=== PATIENT | male | born 1970 | race Hispanic/Latino ===

== ENCOUNTER 2017-07-08 18:14 | Inpatient (IN) | payer OTHER ==
--- NOTE | 2017-07-08 20:07 | Emergency Department Report ---
ED Altered Mental Status HPI - General Chief Complaint: Altered Mental Status Stated Complaint: ALTERED MENTAL STATUS Time Seen by Provider: 07/08/17 20:05 Source: EMS Mode of arrival: Stretcher Limitations: Altered Mental Status - History of Present Illness Initial Comments: According to EMS patient was doing drugs earlier today. He doesn't become altered and had a seizure. He was given 2 mg of Ativan for the seizure. Patient is postictal currently. However he is easily arousable but does not answer questions. MD Complaint: altered mental status -: Sudden Severity: moderate Consistency of Symptoms: unknown Context: drug abuse Associated Symptoms: seizure Treatments Prior to Arrival: other pre-hosp med (Ativan 2mg) - Related Data Previous Rx's Medication Instructions Recorded Last Taken Type Cephalexin [Keflex] 500 mg PO Q6HR #20 capsule 07/09/17 Unknown Rx Allergies Allergy/AdvReac Type Severity Reaction Status Date / Time No Known Allergies Allergy Verified 07/09/17 05:49 ED Review of Systems ROS: Stated complaint: ALTERED MENTAL STATUS Other details as noted in HPI Comment: Unobtainable due to pts medical conditions (Patient is postictal.) ED Past Medical Hx - Past Medical History Additional medical history: UNKNOWN - Surgical History Additional Surgical History: UNKNOWN - Social History Smoking Status: Unknown if ever smoked Substance Use Type: Methamphetamines - Medications Home Medications: Home Medications Medication Instructions Recorded Confirmed Last Taken Type Cephalexin [Keflex] 500 mg PO Q6HR #20 capsule 07/09/17 Unknown Rx ED Physical Exam - General Limitations: Altered Mental Status General appearance: other (Arousable but drowsy.) - Head Head exam: Present: atraumatic, normal inspection - Eye Eye exam: Present: PERRL - ENT ENT exam: Present: normal exam - Neck Neck exam: Present: normal inspection - Respiratory Respiratory exam: Present: normal lung sounds bilaterally. Absent: respiratory distress - Cardiovascular Cardiovascular Exam: Present: regular rate, normal rhythm, normal heart sounds - GI/Abdominal GI/Abdominal exam: Present: soft, normal bowel sounds. Absent: tenderness, guarding, rebound - Extremities Exam Extremities exam: Present: other (Right BKA.). Absent: pedal edema - Neurological Exam Neurological exam: Present: other (Drowsy but easily arousable. GCS = 10.) - Psychiatric Psychiatric exam: Present: flat affect - Skin Skin exam: Present: warm, dry, intact, normal color. Absent: rash - Level of Consciousness 1a. Level of Consciousness: not alert, arousable - LOC Questions 1b. LOC Questions: answers no questions correctly - LOC Command 1c. LOC Commands: performs no tasks correctly (Unable to perform because patient is pstictal.) ED Course Vital Signs 07/08/17 07/08/17 07/08/17 19:38 19:45 19:46 Temperature 99.0 F Pulse Rate 78 76 Respiratory 17 15 Rate Blood Pressure 160/95 143/93 160/95 Blood Pressure [Left] Blood Pressure [Right] O2 Sat by Pulse 98 97 97 Oximetry 07/08/17 07/08/17 07/08/17 20:00 20:12 20:30 Temperature Pulse Rate 79 Respiratory 17 14 Rate Blood Pressure 150/90 161/101 Blood Pressure [Left] Blood Pressure [Right] O2 Sat by Pulse 98 100 98 Oximetry 07/08/17 07/08/17 07/08/17 20:45 21:00 23:42 Temperature Pulse Rate Respiratory 18 Rate Blood Pressure 153/100 141/102 Blood Pressure 160/98 [Left] Blood Pressure [Right] O2 Sat by Pulse 97 96 100 Oximetry 07/09/17 07/09/17 07/09/17 04:34 04:40 04:45 Temperature Pulse Rate 86 Respiratory Rate Blood Pressure 156/106 156/106 147/97 Blood Pressure [Left] Blood Pressure [Right] O2 Sat by Pulse Oximetry 07/09/17 07/09/17 07/09/17 04:52 04:54 05:01 Temperature Pulse Rate Respiratory Rate Blood Pressure 145/93 131/65 Blood Pressure 147/97 [Left] Blood Pressure [Right] O2 Sat by Pulse Oximetry 07/09/17 07/09/17 07/09/17 05:14 05:15 05:30 Temperature Pulse Rate Respiratory Rate Blood Pressure 140/70 138/75 Blood Pressure 131/65 [Left] Blood Pressure [Right] O2 Sat by Pulse Oximetry 07/09/17 07/09/17 05:54 06:00 Temperature 98.1 F 98.1 F Pulse Rate 81 86 Respiratory 20 20 Rate Blood Pressure 150/88 Blood Pressure [Left] Blood Pressure 150/88 [Right] O2 Sat by Pulse 97 96 Oximetry - Reevaluation(s) Reevaluation #1: 07/08/17 22:43 I consulted the tele neurologist socially responsible investment adviser Dr Sauceda. She wants patient admitted to the hospital for observation. She does not want any seizure medication started at this time. However she said if the patient have another seizure to use Ativan to abort the seizure. This patients care was discussed with the hospitalist on-call Dr Ramirez. He will admit the patient to the hospital for further evaluation and management. 07/08/17 23:33 - Lab Data Result diagrams: 07/08/17 20:38 07/08/17 20:38 Lab Results 07/08/17 07/08/17 07/08/17 Range/Units 20:38 20:38 20:38 WBC 5.8 (4.5-11.0) K/mm3 RBC 4.52 (3.65-5.03) M/mm3 Hgb 13.2 (11.8-15.2) gm/dl Hct 40.3 (35.5-45.6) % MCV 89 (84-94) fl MCH 29 (28-32) pg MCHC 33 (32-34) % RDW 14.9 (13.2-15.2) % Plt Count 218 (140-440) K/mm3 Lymph % (Auto) 34.6 (13.4-35.0) % [place] % (Auto) 8.9 H (0.0-7.3) % Eos % (Auto) 4.5 H (0.0-4.3) % Baso % (Auto) 0.6 (0.0-1.8) % Lymph # 2.0 (1.2-5.4) K/mm3 [place] # 0.5 (0.0-0.8) K/mm3 Eos # 0.3 (0.0-0.4) K/mm3 Baso # 0.0 (0.0-0.1) K/mm3 Seg Neutrophils % 51.4 (40.0-70.0) % Seg Neutrophils # 3.0 (1.8-7.7) K/mm3 PT 12.6 (12.2-14.9) Sec. INR 0.90 (0.87-1.13) APTT 31.4 (24.2-36.6) Sec. Sodium 139 (137-145) mmol/L Potassium 4.2 (3.6-5.0) mmol/L Chloride 101.6 (98-107) mmol/L Carbon Dioxide 27 (22-30) mmol/L Anion Gap 15 mmol/L BUN 11 (9-20) mg/dL Creatinine 0.9 (0.8-1.5) mg/dL Estimated GFR > 60 ml/min BUN/Creatinine Ratio 12 % Glucose 96 (75-100) mg/dL Lactic Acid (0.7-2.0) mmol/L Calcium 8.8 (8.4-10.2) mg/dL Total Bilirubin 0.30 (0.1-1.2) mg/dL AST 15 (5-40) units/L ALT 15 (7-56) units/L Alkaline Phosphatase 107 (35-129) units/L Total Creatine Kinase (55-170) units/L Troponin T (0.00-0.029) ng/mL Total Protein 6.5 (6.3-8.2) g/dL Albumin 4.2 (3.9-5) g/dL Albumin/Globulin Ratio 1.8 % Urine Color (Yellow) Urine Turbidity (Clear) Urine pH (5.0-7.0) Ur Specific Imbler (1.003-1.030) Urine Protein (Negative) mg/dL Urine Glucose (UA) (Negative) mg/dL Urine Ketones (Negative) mg/dL Urine Blood (Negative) Urine Nitrite (Negative) Urine Bilirubin (Negative) Urine Urobilinogen (<2.0) mg/dL Ur Leukocyte Esterase (Negative) Urine WBC (Auto) (0.0-6.0) /HPF Urine RBC (Auto) (0.0-6.0) /HPF Urine Bacteria (Auto) (Negative) /HPF Urine WBC Clumps /HPF Urine Opiates Screen Urine Methadone Screen Ur Barbiturates Screen Ur Phencyclidine Scrn Ur Amphetamines Screen U Benzodiazepines Scrn Urine Cocaine Screen U Marijuana (THC) Screen Drugs of Abuse Note Plasma/Serum Alcohol (0-0.07) % 07/08/17 07/08/17 07/08/17 Range/Units 20:38 20:38 20:38 WBC (4.5-11.0) K/mm3 RBC (3.65-5.03) M/mm3 Hgb (11.8-15.2) gm/dl Hct (35.5-45.6) % MCV (84-94) fl MCH (28-32) pg MCHC (32-34) % RDW (13.2-15.2) % Plt Count (140-440) K/mm3 Lymph % (Auto) (13.4-35.0) % Stonewall % (Auto) (0.0-7.3) % Eos % (Auto) (0.0-4.3) % Baso % (Auto) (0.0-1.8) % Lymph # (1.2-5.4) K/mm3 [place]wall # (0.0-0.8) K/mm3 Eos # (0.0-0.4) K/mm3 Baso # (0.0-0.1) K/mm3 Seg Neutrophils % (40.0-70.0) % Seg Neutrophils # (1.8-7.7) K/mm3 PT (12.2-14.9) Sec. INR (0.87-1.13) APTT (24.2-36.6) Sec. Sodium (137-145) mmol/L Potassium (3.6-5.0) mmol/L Chloride (98-107) mmol/L Carbon Dioxide (22-30) mmol/L Anion Gap mmol/L BUN (9-20) mg/dL Creatinine (0.8-1.5) mg/dL Estimated GFR ml/min BUN/Creatinine Ratio % Glucose (75-100) mg/dL Lactic Acid 1.10 (0.7-2.0) mmol/L Calcium (8.4-10.2) mg/dL Total Bilirubin (0.1-1.2) mg/dL AST (5-40) units/L ALT (7-56) units/L Alkaline Phosphatase (35-129) units/L Total Creatine Kinase 381 H (55-170) units/L Troponin T < 0.010 (0.00-0.029) ng/mL Total Protein (6.3-8.2) g/dL Albumin (3.9-5) g/dL Albumin/Globulin Ratio % Urine Color (Yellow) Urine Turbidity (Clear) Urine pH (5.0-7.0) Ur Specific Imbler (1.003-1.030) Urine Protein (Negative) mg/dL Urine Glucose (UA) (Negative) mg/dL Urine Ketones (Negative) mg/dL Urine Blood (Negative) Urine Nitrite (Negative) Urine Bilirubin (Negative) Urine Urobilinogen (<2.0) mg/dL Ur Leukocyte Esterase (Negative) Urine WBC (Auto) (0.0-6.0) /HPF Urine RBC (Auto) (0.0-6.0) /HPF Urine Bacteria (Auto) (Negative) /HPF Urine WBC Clumps /HPF Urine Opiates Screen Urine Methadone Screen Ur Barbiturates Screen Ur Phencyclidine Scrn Ur Amphetamines Screen U Benzodiazepines Scrn Urine Cocaine Screen U Marijuana (THC) Screen Drugs of Abuse Note Plasma/Serum Alcohol < 0.01 (0-0.07) % 07/08/17 07/08/17 Range/Units 20:59 20:59 WBC (4.5-11.0) K/mm3 RBC (3.65-5.03) M/mm3 Hgb (11.8-15.2) gm/dl Hct (35.5-45.6) % MCV (84-94) fl MCH (28-32) pg MCHC (32-34) % RDW (13.2-15.2) % Plt Count (140-440) K/mm3 Lymph % (Auto) (13.4-35.0) % [place] % (Auto) (0.0-7.3) % Eos % (Auto) (0.0-4.3) % Baso % (Auto) (0.0-1.8) % Lymph # (1.2-5.4) K/mm3 [place] # (0.0-0.8) K/mm3 Eos # (0.0-0.4) K/mm3 Baso # (0.0-0.1) K/mm3 Seg Neutrophils % (40.0-70.0) % Seg Neutrophils # (1.8-7.7) K/mm3 PT (12.2-14.9) Sec. INR (0.87-1.13) APTT (24.2-36.6) Sec. Sodium (137-145) mmol/L Potassium (3.6-5.0) mmol/L Chloride (98-107) mmol/L Carbon Dioxide (22-30) mmol/L Anion Gap mmol/L BUN (9-20) mg/dL Creatinine (0.8-1.5) mg/dL Estimated GFR ml/min BUN/Creatinine Ratio % Glucose (75-100) mg/dL Lactic Acid (0.7-2.0) mmol/L Calcium (8.4-10.2) mg/dL Total Bilirubin (0.1-1.2) mg/dL AST (5-40) units/L ALT (7-56) units/L Alkaline Phosphatase (35-129) units/L Total Creatine Kinase (55-170) units/L Troponin T (0.00-0.029) ng/mL Total Protein (6.3-8.2) g/dL Albumin (3.9-5) g/dL Albumin/Globulin Ratio % Urine Color Yellow (Yellow) Urine Turbidity Clear (Clear) Urine pH 6.0 (5.0-7.0) Ur Specific Imbler 1.013 (1.003-1.030) Urine Protein <15 mg/dl (Negative) mg/dL Urine Glucose (UA) Neg (Negative) mg/dL Urine Ketones Neg (Negative) mg/dL Urine Blood Neg (Negative) Urine Nitrite Neg (Negative) Urine Bilirubin Neg (Negative) Urine Urobilinogen < 2.0 (<2.0) mg/dL Ur Leukocyte Esterase Lg (Negative) Urine WBC (Auto) 61.0 H (0.0-6.0) /HPF Urine RBC (Auto) 2.0 (0.0-6.0) /HPF Urine Bacteria (Auto) 1+ (Negative) /HPF Urine WBC Clumps 2+ /HPF Urine Opiates Screen Presumptive negative Urine Methadone Screen Presumptive negative Ur Barbiturates Screen Presumptive negative Ur Phencyclidine Scrn Presumptive negative Ur Amphetamines Screen Presumptive positive U Benzodiazepines Scrn Presumptive negative Urine Cocaine Screen Presumptive negative U Marijuana (THC) Screen Presumptive negative Drugs of Abuse Note Disclamer Plasma/Serum Alcohol (0-0.07) % - EKG Data EKG shows normal: sinus rhythm Rate: normal (83) When compared to previous EKG there are: previous EKG unavailable Interpretation: normal EKG - Radiology Data Radiology results: report reviewed, image reviewed - Medical Decision Making ALTERED MENTAL STATUS. Seizure. Drug abuse. Critical care attestation.: If time is entered above; I have spent that time in minutes in the direct care of this critically ill patient, excluding procedure time. ED Disposition Clinical Impression: Seizure, Drug abuse, Methamphetamine abuse, episodic Altered mental status Qualifiers: Altered mental status type: unspecified Qualified Code(s): R41.82 - Altered mental status, unspecified UTI (urinary tract infection) Qualifiers: Urinary tract infection type: acute cystitis Hematuria presence: without hematuria Qualified Code(s): N30.00 - Acute cystitis without hematuria Disposition: OP ADMIT IP TO THIS HOSP Is pt being admited?: Yes Does the pt Need Aspirin: No Condition: Stable Time of Disposition: 22:45
[2017-07-08] MEDS ORDERED: NACL 0.9% 1000 ML 1,000 ML IV ONE (20:11)
[2017-07-08 20:56] LABS: Basophils % (Auto) 0.6 % (0.0-1.8); Eosinophils # (Auto) 0.3 K/mm3 (0.0-0.4); Eosinophils % (Auto) 4.5 % (0.0-4.3); Hematocrit 40.3 % (35.5-45.6); Hemoglobin 13.2 gm/dl (11.8-15.2); Lymphocytes % (Auto) 34.6 % (13.4-35.0); Mean Corpuscular HGB Conc 33 % (32-34); Mean Corpuscular Hemoglobin 29 pg (28-32); Mean Corpuscular Volume 89 fl (84-94); Monocytes # (Auto) 0.5 K/mm3 (0.0-0.8); Monocytes % (Auto) 8.9 % (0.0-7.3); Platelet Count 218 K/mm3 (140-440); Red Blood Count 4.52 M/mm3 (3.65-5.03); Red Cell Distribution Width 14.9 % (13.2-15.2)
[2017-07-08 21:06] LABS: INR 0.9 (0.87-1.13); Partial Thromboplastin Time 31.4 Sec. (24.2-36.6)
[2017-07-08 21:13] LABS: Alanine Aminotransferase 15 units/L (7-56); Albumin 4.2 g/dL (3.9-5); BUN/Creatinine Ratio 12; Blood Urea Nitrogen 11 mg/dL (9-20); Calcium 8.8 mg/dL (8.4-10.2); Hemolysis Index 3
--- NOTE | 2017-07-08 21:30 | Cat Scan Report ---
FINAL REPORT PROCEDURE: CT head without contrast. TECHNIQUE: Computerized tomography of the head was performed without contrast material. HISTORY: Altered mental status. COMPARISON: No prior studies are available for comparison. FINDINGS: There is motion artifact on a few of the images. The ventricles are normal in size. The ogden matter and white matter appear normal. There are no mass lesions. There is no intracranial hemorrhage. There are no signs of acute infarction. The calvarium appears intact. The mastoid air cells are clear as far as visualized. There is some fluid and mucosal thickening in the left posterior ethmoid air cells. There is mild mucosal thickening in the left maxillary sinus. IMPRESSION: Normal study of the brain. Mild sinusitis as described.
[2017-07-08 21:40] LABS: Bacteria,Urine 1+ /HPF (Negative); Bilirubin,Urine NEG (Negative); Blood,Urine NEG (Negative); Color,Urine Yellow (Yellow); Protein,Urine <15 mg/dL mg/dL (Negative); Urobilinogen,Urine < 2.0 mg/dL (<2.0)
[2017-07-08 21:47] LABS: Benzodiazepines Screen,Urine PRESUMPTIVE NEGATIVE; Cannabinoid Screen,Urine PRESUMPTIVE NEGATIVE; Cocaine Screen,Urine PRESUMPTIVE NEGATIVE; Methadone Screen,Urine PRESUMPTIVE NEGATIVE; Opiate Screen,Urine PRESUMPTIVE NEGATIVE
[2017-07-08 21:58] LABS: Amphetamine Screen,Urine PRESUMPTIVE POSITIVE
--- NOTE | 2017-07-08 22:03 | XRay Report ---
FINAL REPORT PROCEDURE: AP chest x-ray TECHNIQUE: Chest radiograph anteroposterior view. CPT 58112 HISTORY: Altered Mental Status COMPARISON: No prior studies are available for comparison. FINDINGS: Patient is rotated to the right. The heart is magnified due to projection appears to be normal size. The pulmonary vasculature appears normal. No evidence of pulmonary edema pleural effusion infiltrate or mass. No acute bony abnormalities are identified.. IMPRESSION: No acute cardiopulmonary abnormality.
[2017-07-08] MEDS ORDERED: XYLOCAINE 1% MPF 5 mL INFILTRATI ONE (22:29)
[2017-07-08] MEDS ORDERED: ROCEPHIN IM ONE (22:29)
[2017-07-08] MEDS ORDERED: APRESOLINE IV ONE (23:10)
[2017-07-09] MEDS ORDERED: ATIVAN IV PRN (00:19)
[2017-07-09] MEDS ORDERED: ZOFRAN IV PRN (00:23)
[2017-07-09] MEDS ORDERED: TYLENOL PO PRN (00:23)
[2017-07-09] MEDS ORDERED: APRESOLINE IV PRN (00:24)
[2017-07-09] MEDS ORDERED: HEPARIN SUB-Q SCH (04:00)
[2017-07-09] MEDS ORDERED: APRESOLINE ONE (04:35)
[2017-07-09] MEDS ORDERED: cefTRIAXone 1 GM in NACL 0.9% 20 ML IV SCH (10:00)
[2017-07-09] MEDS ORDERED: ROCEPHIN/NS 1 GM/50 ML 1 GM/50 ML BAG IV SCH (10:00)
--- NOTE | 2017-07-09 12:25 | Discharge Summary ---
Providers - Providers Date of Admission: 07/09/17 03:56 Attending physician: ILANA IVEY MD Primary care physician: SENIOR GRADUATE ADVISOR Hospitalization Reason for admission: Syncope, amphetamine abuse, UTI Condition: Stable Disposition: [id number] TO HOME OR SELFCARE Time spent for discharge: 32 minutes - Discharge Diagnoses (1) Altered mental status Status: Acute Qualifiers: Altered mental status type: unspecified Qualified Code(s): R41.82 - Altered mental status, unspecified (2) Drug abuse Status: Acute (3) Methamphetamine abuse, episodic Status: Acute (4) Seizure Status: Acute (5) UTI (urinary tract infection) Status: Acute Qualifiers: Urinary tract infection type: acute cystitis Hematuria presence: without hematuria Qualified Code(s): N30.00 - Acute cystitis without hematuria Core Measure Documentation - Palliative Care Palliative Care/ Comfort Measures: Not Applicable - Core Measures Any of the following diagnoses?: none Exam - Constitutional Vitals: Temp Pulse Resp BP Pulse Ox 98.0 F 95 H 20 142/86 97 07/09/17 07:48 07/09/17 07:48 07/09/17 07:48 07/09/17 07:48 07/09/17 07:48 Plan Activity: no restrictions Weight Bearing Status: Full Weight Bearing Diet: low salt Additional Instructions: Follow at [facility] in 1-2 weeks Follow up with: PRIMARY CAREMD [Primary Care Provider] - 7 Days Prescriptions: Cephalexin [Keflex] 500 mg PO Q6HR #20 capsule
[2017-07-09 12:53] VITALS: BP 140/87
--- NOTE | 2017-07-11 09:51 | History and Physical Report ---
CHIEF COMPLAINT: Change in mental status. HISTORY OF PRESENT ILLNESS: The patient is a 46-year-old male who was reported to be having seizure attack with s- noted. The area around to be doing some illicit drugs prior to the seizure and EMS got to the patient and gave 2 mg of IV Ativan for seizure attack and the patient subsequently was brought in postictal. There was no prior history of chest pain, fever, nausea or vomiting and during the seizure attack there was no report of any injury with biting of tongue. There was also no prior history of chest pain or shortness of breath and the patient was seen in the Emergency Room. PAST MEDICAL HISTORY: Unknown. 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 FAMILY HISTORY: Noncontributory. SOCIAL HISTORY: The patient uses illicit drug, notably amphetamine. It is not known whether the patient smokes cigarettes or drinks alcohol. MEDICATIONS: The patient's home medications are not known at this time. ALLERGIES: There are no known drug allergies. REVIEW OF SYSTEMS: CONSTITUTIONAL: There is no fever, no chills, no diaphoresis. HEENT: There is no headache or sore throat. CARDIOVASCULAR: There is no chest pain or orthopnea. RESPIRATORY: There is no shortness of breath or cough. GASTROINTESTINAL: There is no nausea, no vomiting, no abdominal pain, diarrhea or constipation. NEUROLOGIC: Altered mental status noted. Seizure attack noted. No dizziness. MUSCULOSKELETAL: There is no joint pain or swelling. DERMATOLOGICAL: There is no skin rash or itching. GENITOURINARY: There is no dysuria, hematuria or flank pain. Rest of system review is normal. PHYSICAL EXAMINATION: GENERAL: At the time of exam, the patient was found to be alert, oriented x 3 and not in acute distress. VITAL SIGNS: Shows normal temperature with pulse of 86, blood pressure 156/106, respirations of 18, O2 sat of 100% on room air. HEENT: Show pupils to be equal, round, and reactive to light and accommodation. Extraocular muscles are intact. NECK: Supple, with no JVD or carotid bruit. CARDIOVASCULAR: Showed normal first and second heart sounds with no gallops or murmur. RESPIRATORY: Show good air entry on both sides of the lungs with no abnormal breath sounds. GASTROINTESTINAL: Show abdomen to be full, soft, nontender with no organomegaly or rigidity. NEUROLOGICAL: Shows no focal deficit. MUSCULOSKELETAL: Show no joint swelling or tenderness, but there is a right below the knee amputation with prosthesis in place. DERMATOLOGICAL: Show no skin rash. GENITOURINARY: Show no costovertebral angle tenderness. PERTINENT LABORATORY AND IMAGING STUDIES: The patient has CT of the head without contrast done that shows normal study of the brain with mild sinusitis found in the ethmoidal sinus and also maxillary sinus. The patient also had chest x-ray done that shows no acute cardiopulmonary abnormality. LABORATORY DATA: The patient has CBC done with normal white count, normal hemoglobin and normal hematocrit with CBC differential showing elevated monocyte count of 8.9% and elevated eosinophil count of 4.5%. The patient's coagulation studies were unremarkable. Chemistry was unremarkable except for slight increase in total CPK of 381 . The patient's cardiac enzyme, troponin was unremarkable. Urinalysis show elevated urine leukocyte esterase and elevated urine WBC of 61 with 1+ bacteria. Urine drug screen is positive for amphetamine. DIAGNOSES: 1. Seizure disorder. 2. Amphetamine abuse. 3. Urinary tract infection. PLAN OF CARE. 1. Seizure disorder, the patient will be on IV Ativan 1 mg every 2 hours as needed for seizure attack. 2. Management of seizures. The patient will have a Neurology consult with Dr. Darren Lopez to decide. 3. The patient will be placed on antiseizure medications since this is the first report of seizure attack. 4. For amphetamine abuse, the patient is already on IV Ativan 1 mg every 2 hours as needed for anxiety or seizure. The patient will receive counseling for drug abuse. 5. For urinary tract infection, the patient will be on IV ceftriaxone 1 gram daily and other treatments will include IV hydralazine 10 mg every 4 hours as needed for elevated blood pressures of 150/90 mmHg or more. The patient will also be on Tylenol 650 mg by mouth every 4 hours for fever and headache and DVT prophylaxis will be through heparin 5000 units subcutaneous q. 12 hours for DVT prophylaxis. The patient will also be on oxygen by nasal cannula at 2 liter per minute. The patient's diet will be 2 g sodium diet. JOB# [id number] OCN/NTS
== END 2017-07-09 14:35 | disposition home or self-care (01) | DRG 101 ==
LOC: ED 18:14 → 3A 07-09 03:56
PROVIDERS: ADMIT Internal Medicine; ATTEND Internal Medicine
DX: G40.909 Epilepsy, unspecified, not intractable, without status epilepticus (principal); N39.0 Urinary tract infection, site not specified; R41.82 Altered mental status, unspecified; F19.10 Other psychoactive substance abuse, uncomplicated; F15.10 Other stimulant abuse, uncomplicated
CPT/HCPCS: 36415; 70450; 71045; 80053; 80307; 80320; 81001; 82140; 82550; 84484; 85025; 85610; 85730; 87086; 93005; 93010; 99285; G0480; J0360; J0696; J7030